=== PATIENT | male | born 1990 ===

== ENCOUNTER 2020-02-24 10:45 | Inpatient (IN) | payer MEDICAID ==
[~2020-02-24] VITALS: Ht 175.3 cm; Wt 118.5 kg
[2020-02-24] MEDS ORDERED: POLYETHYLENE GLYCOL 17 GM PACKET PO PRN (15:00)
[2020-02-24] MEDS ORDERED: ACETAMINOPHEN 325 MG TABLET PO PRN (15:00)
[2020-02-24] MEDS ORDERED: DOCUSATE 100 MG CAPSULE PO PRN (15:00)
[2020-02-24] MEDS ORDERED: ONDANSETRON ODT 4 MG PO PRN (15:00)
[2020-02-24] MEDS ORDERED: BISACODYL 10 MG SUPP PR PRN (15:00)
[2020-02-24] MEDS ORDERED: SERT50TA PO (15:07)
[2020-02-24] MEDS ORDERED: LITH450T PO (15:07)
[2020-02-24] MEDS ORDERED: LITH600C PO (15:07)
[2020-02-24] MEDS ORDERED: ARIP400S IM (15:07)
[2020-02-24 15:12] VITALS: BP 143/93
[2020-02-24] MEDS ORDERED: PLEASE ENTER HEIGHT AND WEIGHT MC SCH (15:30)
[2020-02-24] MEDS ORDERED: PLEASE ENTER ALLERGIES MC SCH (15:30)
[2020-02-24 19:18] VITALS: BP 137/81
[2020-02-24] MEDS: LACTOBACILLUS CHEW TABLET PO SCH (20:27)
[2020-02-24] MEDS: CEPHALEXIN 500 MG CAPSULE PO SCH (20:27)
[2020-02-24] MEDS: LITHIUM CARBONATE 300 MG CAPSULE PO SCH (20:27)
[2020-02-25 05:46] LABS: BASOPHILS # (AUTO) 0.05 x10^3/uL (0-0.1); BASOPHILS % (AUTO) 1 % (0-1); EOSINOPHILS # (AUTO) 0.22 x10^3/uL (0-0.4); EOSINOPHILS % (AUTO) 3 % (1-7); LYMPHOCYTES # (AUTO) 2.78 x10^3/uL (1-3.4); LYMPHOCYTES % (AUTO) 33 % (22-44); MD NO; MEAN CORPUSCULAR HEMOGLOBIN 29.3 pg (27.5-34.5); MEAN CORPUSCULAR HGB CONC 33.9 g/dL (33.2-36.2); MEAN CORPUSCULAR VOLUME 86.6 fL (81-97); MEAN PLATELET VOLUME 10.4 fL (7.4-10.4); MONOCYTES # (AUTO) 0.51 x10^3/uL (0.2-0.8); MONOCYTES % (AUTO) 6 % (2-9); NEUTROPHILS # (AUTO) 4.85 x10^3/uL (1.8-6.8); NEUTROPHILS % (AUTO) 58 % (42-75); PLATELET COUNT 218 x10^3/uL (130-400); RED CELL DISTRIBUTION WIDTH 13.1 % (9.4-14.8)
[2020-02-25 06:00] LABS: ALBUMIN 3.7 g/dL (3.4-5.0); ANION GAP 3 mmol/L (5-15); CHLORIDE 106 mmol/L (98-107)
[2020-02-25 06:08] LABS: ALANINE AMINOTRANSFERASE 131 U/L (12-78); ALKALINE PHOSPHATASE 57 U/L (45-117); BILIRUBIN,TOTAL 0.6 mg/dL (0.2-1.0); CHOL/HDL RATIO 7.8; CHOLESTEROL, TOTAL 217 mg/dL (140-239); CREATININE 1.05 mg/dL (0.7-1.3); FREE T4 (FREE THYROXINE) 0.96 ng/dL (0.76-1.46); HDL CHOL % 13 % (26-37); HDL CHOLESTEROL (DIRECT) 28 mg/dL (40-60); LDL CHOLESTEROL,CALCULATED 134 mg/dL (54-169); LDL/HDL RATIO 4.8 (0.5-3.0); TOTAL PROTEIN 7.7 g/dL (6.4-8.2); TRIGLYCERIDES 274 mg/dL (50-200); VLDL CHOLESTEROL 55 mg/dL (0-25)
[2020-02-25 07:20] VITALS: BP 122/75
[2020-02-25] MEDS: LITHIUM CARBONATE 150 MG CAPSULE PO SCH (08:43)
[2020-02-25] MEDS: LACTOBACILLUS CHEW TABLET PO SCH ×3 (08:44→20:35)
[2020-02-25] MEDS: CEPHALEXIN 500 MG CAPSULE PO SCH ×2 (08:45→20:35)
[2020-02-25] MEDS ORDERED: SERTRALINE 50MG TABLET PO SCH (09:00)
[2020-02-25 13:10] LABS: MICROSCOPIC NOT IND
[2020-02-25] MEDS ORDERED: ARIPIPRAZOLE 5 MG TABLET PO PRN (14:30)
[2020-02-25 19:58] VITALS: BP 135/85
[2020-02-25] MEDS: LITHIUM CARBONATE 300 MG CAPSULE PO SCH (20:35)
[2020-02-26 06:54] LABS: ALANINE AMINOTRANSFERASE 118 U/L (12-78); ALBUMIN 3.8 g/dL (3.4-5.0); ANION GAP 3 mmol/L (5-15); CALCIUM 9.4 mg/dL (8.5-10.1); CHLORIDE 107 mmol/L (98-107); CREATININE 0.99 mg/dL (0.7-1.3)
[2020-02-26 06:56] LABS: ALKALINE PHOSPHATASE 57 U/L (45-117); BILIRUBIN,TOTAL 0.5 mg/dL (0.2-1.0); TOTAL PROTEIN 7.8 g/dL (6.4-8.2)
[2020-02-26 07:31] VITALS: BP 129/86
[2020-02-26] MEDS: CEPHALEXIN 500 MG CAPSULE PO SCH ×2 (08:38→20:07)
[2020-02-26] MEDS: SERTRALINE 100MG TABLET PO SCH (08:39)
[2020-02-26] MEDS: LITHIUM CARBONATE 150 MG CAPSULE PO SCH (08:39)
[2020-02-26] MEDS: LACTOBACILLUS CHEW TABLET PO SCH ×3 (08:40→20:07)
[2020-02-26 19:20] VITALS: BP 131/81
[2020-02-26] MEDS: LITHIUM CARBONATE 300 MG CAPSULE PO SCH (20:07)
[2020-02-27 07:42] VITALS: BP 128/83
[2020-02-27] MEDS: CEPHALEXIN 500 MG CAPSULE PO SCH ×2 (08:30→20:15)
[2020-02-27] MEDS: SERTRALINE 100MG TABLET PO SCH (08:30)
[2020-02-27] MEDS: LITHIUM CARBONATE 150 MG CAPSULE PO SCH (08:31)
[2020-02-27] MEDS: LACTOBACILLUS CHEW TABLET PO SCH ×3 (08:31→20:15)
[2020-02-27 19:25] VITALS: BP 125/84
[2020-02-27] MEDS: LITHIUM CARBONATE 300 MG CAPSULE PO SCH (20:15)
[2020-02-28 07:39] VITALS: BP 121/74
[2020-02-28] MEDS: LACTOBACILLUS CHEW TABLET PO SCH ×3 (09:06→21:21)
[2020-02-28] MEDS: LITHIUM CARBONATE 150 MG CAPSULE PO SCH (09:06)
[2020-02-28] MEDS: CEPHALEXIN 500 MG CAPSULE PO SCH ×2 (09:06→21:21)
[2020-02-28] MEDS: SERTRALINE 100MG TABLET PO SCH (09:06)
[2020-02-28 19:49] VITALS: BP 144/88
[2020-02-28] MEDS: ARIPIPRAZOLE 5 MG TABLET PO SCH (21:21)
[2020-02-28] MEDS: LITHIUM CARBONATE 300 MG CAPSULE PO SCH (21:21)
[2020-02-29 07:42] VITALS: BP 135/85
[2020-02-29] MEDS: LACTOBACILLUS CHEW TABLET PO SCH ×2 (10:21→16:23)
[2020-02-29] MEDS: CEPHALEXIN 500 MG CAPSULE PO SCH (10:21)
[2020-02-29] MEDS: ARIPIPRAZOLE 5 MG TABLET PO SCH ×2 (10:21→21:13)
[2020-02-29] MEDS: LITHIUM CARBONATE 150 MG CAPSULE PO SCH (10:22)
[2020-02-29] MEDS: SERTRALINE 100MG TABLET PO SCH (10:22)
[2020-02-29] MEDS ORDERED: LITH150C PO (14:12)
[2020-02-29] MEDS ORDERED: LITH300C PO (14:12)
[2020-02-29] MEDS ORDERED: ARIP5TAB13 PO (14:12)
[2020-02-29] MEDS ORDERED: SERT100T32 PO (14:12)
[2020-02-29 19:09] VITALS: BP 126/78
[2020-02-29] MEDS: LITHIUM CARBONATE 300 MG CAPSULE PO SCH (21:13)
[2020-03-01 07:52] VITALS: BP 126/88
[2020-03-01] MEDS: ARIPIPRAZOLE 5 MG TABLET PO SCH (08:05)
[2020-03-01] MEDS: SERTRALINE 100MG TABLET PO SCH (08:05)
[2020-03-01] MEDS: LITHIUM CARBONATE 150 MG CAPSULE PO SCH (08:10)
== END 2020-03-01 08:15 | disposition home or self-care (01) | DRG 750 ==
LOC: 3E 13:26
PROVIDERS: ADMIT Psychiatry & Neurology Psychosomatic Medicine; ATTEND Psychiatry & Neurology Psychosomatic Medicine
DX: F25.0 Schizoaffective disorder, bipolar type (principal); E66.9 Obesity, unspecified; Z79.899 Other long term (current) drug therapy; Z82.49 Family history of ischemic heart disease and other diseases of the circulatory system; Z81.8 Family history of other mental and behavioral disorders; Z68.38 Body mass index [BMI] 38.0-38.9, adult
CPT/HCPCS: 36415; 71045; 80053; 80061; 80178; 81003; 84439; 84443; 85025; 93005

== ENCOUNTER 2020-12-05 00:55 | Inpatient (IN) | payer MEDICAID ==
[~2020-12-05] VITALS: Ht 175.3 cm; Wt 133.4 kg
[~2020-12-05 00:55] MED LIST: ACETAMINOPHEN 325 MG TABLET PO PRN; ARIP400S IM; ARIP5TAB13 PO; BISACODYL 10 MG SUPP PR PRN; DOCUSATE 100 MG CAPSULE PO PRN; LITH150C PO; LITH300C PO; LITH450T PO; LITH600C PO; ONDANSETRON ODT 4 MG PO PRN; POLYETHYLENE GLYCOL 17 GM PACKET PO PRN; SERT100T32 PO; SERT50TA PO
[2020-12-05 01:41] VITALS: BP 135/70
[2020-12-05 02:18] VITALS: BP 135/70
[2020-12-05 07:48] VITALS: BP 128/87
[2020-12-05 08:02] LABS: BASOPHILS % (AUTO) 1 % (0-1); EOSINOPHILS % (AUTO) 3 % (1-7); LYMPHOCYTES % (AUTO) 27 % (22-44); MEAN CORPUSCULAR HEMOGLOBIN 29.7 pg (27.5-34.5); MEAN PLATELET VOLUME 10.3 fL (7.4-10.4); MONOCYTES % (AUTO) 6 % (2-9); NEUTROPHILS % (AUTO) 63 % (42-75); PLATELET COUNT 266 x10^3/uL (130-400); RED BLOOD COUNT 5.79 x10^6/uL (4.38-5.82); RED CELL DISTRIBUTION WIDTH 12.4 % (9.4-14.8)
[2020-12-05 08:07] LABS: MD NO
[2020-12-05 08:10] LABS: ANION GAP 8 mmol/L (5-15); CALCIUM 9.4 mg/dL (8.5-10.1); CHLORIDE 104 mmol/L (98-107); CHOLESTEROL, TOTAL 230 mg/dL (140-239); CREATININE 1.06 mg/dL (0.7-1.3); TRIGLYCERIDES 306 mg/dL (50-200); VLDL CHOLESTEROL 61 mg/dL (0-25)
[2020-12-05 08:36] LABS: CHOL/HDL RATIO 6.4; FREE T4 (FREE THYROXINE) 0.99 ng/dL (0.76-1.46); HDL CHOL % 16 % (26-37); HDL CHOLESTEROL (DIRECT) 36 mg/dL (40-60); LDL CHOLESTEROL,CALCULATED 133 mg/dL (54-169); LDL/HDL RATIO 3.7 (0.5-3.0)
[2020-12-05] MEDS: LITHIUM CARBONATE 300 MG CAPSULE PO SCH ×3 (13:57→20:40)
[2020-12-05] MEDS: BUPROPION SR 150 MG TABLET PO SCH ×2 (13:58→20:40)
[2020-12-05 19:47] VITALS: BP 132/89
[2020-12-05 21:25] LABS: MICROSCOPIC NOT IND
[2020-12-06 07:42] VITALS: BP 126/85
[2020-12-06] MEDS: LITHIUM CARBONATE 300 MG CAPSULE PO SCH ×3 (09:50→20:26)
[2020-12-06] MEDS: BUPROPION SR 150 MG TABLET PO SCH ×2 (09:50→20:26)
[2020-12-06] MEDS: HYDROXYZINE PAMOATE 50MG CAP PO PRN ×2 (12:31→20:26)
[2020-12-06 19:30] VITALS: BP 125/73
[2020-12-07 07:05] VITALS: BP 116/78
[2020-12-07] MEDS: LITHIUM CARBONATE 300 MG CAPSULE PO SCH ×3 (08:40→20:23)
[2020-12-07] MEDS: BUPROPION SR 150 MG TABLET PO SCH ×2 (08:40→20:23)
[2020-12-07] MEDS: HYDROXYZINE PAMOATE 50MG CAP PO PRN (08:46)
[2020-12-07] MEDS: PALIPERIDONE 3 MG TAB.ER.24 PO SCH (15:22)
[2020-12-07 19:25] VITALS: BP 130/78
[2020-12-08 07:14] VITALS: BP 120/77
[2020-12-08] MEDS: LITHIUM CARBONATE 300 MG CAPSULE PO SCH ×3 (08:29→20:35)
[2020-12-08] MEDS: PALIPERIDONE 3 MG TAB.ER.24 PO SCH (08:29)
[2020-12-08] MEDS: BUPROPION SR 150 MG TABLET PO SCH ×2 (08:29→20:35)
[2020-12-08 20:16] VITALS: BP 127/84
[2020-12-09 07:37] VITALS: BP 137/83
[2020-12-09] MEDS: BUPROPION SR 150 MG TABLET PO SCH ×2 (08:26→20:21)
[2020-12-09] MEDS: LITHIUM CARBONATE 300 MG CAPSULE PO SCH ×3 (08:26→20:21)
[2020-12-09] MEDS: PALIPERIDONE 3 MG TAB.ER.24 PO SCH (08:26)
[2020-12-09] MEDS: HYDROXYZINE PAMOATE 50MG CAP PO PRN ×2 (08:27→20:21)
[2020-12-09] MEDS ORDERED: BUPR150T73 PO (09:51)
[2020-12-09] MEDS ORDERED: HYDR50CA2 PO (09:51)
[2020-12-09] MEDS ORDERED: LITH300C PO (09:51)
[2020-12-09] MEDS ORDERED: PALI3TAB11 PO (09:51)
[2020-12-09 19:48] VITALS: BP 117/81
[2020-12-10 07:41] VITALS: BP 126/83
[2020-12-10] MEDS: PALIPERIDONE 3 MG TAB.ER.24 PO SCH (08:30)
[2020-12-10] MEDS: LITHIUM CARBONATE 300 MG CAPSULE PO SCH (08:30)
[2020-12-10] MEDS: BUPROPION SR 150 MG TABLET PO SCH (08:30)
== END 2020-12-10 09:45 | disposition home or self-care (01) | DRG 750 ==
LOC: 3E 00:55
PROVIDERS: ADMIT Psychiatry & Neurology Psychosomatic Medicine; ATTEND Psychiatry & Neurology Psychosomatic Medicine
DX: F25.0 Schizoaffective disorder, bipolar type (principal); E66.01 Morbid (severe) obesity due to excess calories; R45.851 Suicidal ideations; E87.1 Hypo-osmolality and hyponatremia; F41.9 Anxiety disorder, unspecified; G47.30 Sleep apnea, unspecified; Y90.9 Presence of alcohol in blood, level not specified; E78.1 Pure hyperglyceridemia; F10.11 Alcohol abuse, in remission; Z68.41 Body mass index [BMI] 40.0-44.9, adult; Z81.8 Family history of other mental and behavioral disorders; Z82.49 Family history of ischemic heart disease and other diseases of the circulatory system
CPT/HCPCS: 36415; 71045; 80048; 80061; 81003; 82607; 84439; 84443; 85025; 93005